=== PATIENT | female | born 1965 | race Caucasian/White ===

== ENCOUNTER 2018-10-20 12:15 | Outpatient (RCR) | payer OTHER, SELFPAY ==
--- NOTE | 2018-08-04 14:11 | PT.OIE ---
Current Diagnoses Anal spasm (08/04/18) Other specified disorders of bladder (08/04/18) Urge incontinence (08/04/18) Other symptoms and signs involving the genitourinary system (08/04/18) Past Surgical History Status post hysterectomy Provider Visit Care Team Role Provider Type WING Quinonez Primary Care Provider Non-Staff Specialty: Medical Address: [address] [place] [address], [place], [address] Email: Jewell Del Toro MD Attending Provider Non-Staff Specialty: Urology Address: [address] [place] [address], [id number] Email: Physical Therapy Initial Evaluation PT-OP-A Visit Information Start: 08/04/18 07:28 Freq: Status: Active Protocol: Document 08/04/18 13:45 AMB (Rec: 08/06/18 07:40 AMB [email or web address]) Out-Patient Physical Therapy Visit Information Visit Information Visit Type Initial Evaluation Visit Start Time 13:45 Visit Stop Time 14:30 Total Visit Minutes 45 Visit Number 1 PT-OP-B Current Condition Start: 08/04/18 07:28 Freq: Status: Active Protocol: Document 08/04/18 13:45 AMB (Rec: 08/04/18 14:13 AMB [id number]) Current Condition History of Current Condition Onset Date April 2018 Current Complaints suprapubic pain, urinary incontinence History of Current Condition Kerrie reports multiple years of chronic pain. She was diagnosed with interstitial cystitis. She has also had the diagnosis of IBS but is unsure of it, she is seeing a GI MD soon. In April of last year, she had a bad virus that went into pneumonia and was coughing a lot. This exacerbated all of her symptoms to the point she was unable to work. 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 With the coughing, she has had more stress incontinence (little leaks throughout the day) and daily urgency. She has had 4 instances of urge incontinence (large leaks) wetting pants. Pain worsens in the afternoon (standing and sitting make it worse). Coughing and stress increase pain. Distant history of 3 pregnancies, 2 vaginal births with tearing. Prior Treatments and Tests Prior vaginal hysterectomy in and laparoscopic oophorectomy in 2017. 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 Functional Limitations- Other Not sexually active currently, but wouldn't want to at this point due to pain. Personal Factors Other Personal Factors That May Effect DMII, depression, lives [place] [facility] [place] (long commute into PT). PT-OP-C Subjective Start: 08/04/18 07:28 Freq: Status: Active Protocol: Document 08/04/18 13:45 AMB (Rec: 08/06/18 12:59 AMB [email or web address]) OP-PT Pain Assessment Location Lower Abdomen Intensity 8 Scale Used Numeric (1 - 10) Description Sharp Spasm Frequency Constant Pain Aggravating Factors Activity Standing Sitting Coughing PT-OP-I Pelvic Floor Start: 08/04/18 07:28 Freq: Status: Active Protocol: Document 08/04/18 13:45 AMB (Rec: 08/06/18 12:10 AMB [email or web address]) Pelvic Floor Assessment Urine Pelvic Floor Surgery Yes Urinary Symptoms Dysuria Urge Sensation Pain Leakage Size Large Leakage Cause Cough Sneeze Urge Leaks Per Day 3 Voiding Frequency 6-10x/day Nocturia 3 Pads Used In 24 Hours 3 Urine Pad Type Maxi Pad Bowel Bowel Symptoms Fecal Leakage Other Bowel Symptoms Pt reports fecal incontinence when she had a stomach virus in April and a lot of diarrhea, but usually this is not as much of a problem. [place] Stool Chart Type 1-7 5 [place] Stool Chart Comments varies Pelvic Clock Pelvic Clock 12-3 Hypertonic Pelvic Clock 3-6 Guarding Tenderness Tightness Pelvic Clock 6-9 Guarding Tenderness Tightness Pelvic Clock 9-12 Hypertonic Prolapse Cystocele Grade 2 Rectocele Grade 1 Contraction Ability Voluntary Contraction Weak Voluntary Relaxation Weak Manual Muscle Testing Left 1 Manual Muscle Testing Right 1 Manual Muscle Testing Anterior 1 Manual Muscle Testing Posterior 2 Muscle Endurance (Seconds) 3 Number of Quick Contractions In 10 3 Seconds PT-OP-T Assessment and Plan Start: 08/04/18 07:28 Freq: Status: Active Protocol: Document 08/04/18 13:45 AMB (Rec: 08/06/18 12:59 AMB [email or web address]) Physical Therapy Assessment Rehab Potential Rehabilitation Potential Good Evaluation Complexity Number of Personal Factors/Comorbidities 3 or More Number of Body Systems Impaired 4 or More Clinical Presentation at Evaluation Evolving Impairments Impairments Functional Activities Pain Soft Tissue Mobility Strength Tone Goals Three Impairment Strength Short Term Goal (STG) Kerrie will increase her pelvic floor strength to 3/5. STG Duration 5 weeks Alf Goal (LTG) Kerrie will be independent with a pelvic floor strengthening HEP. LTG Duration 10/13/18 Two Impairment incontinence Short Term Goal (STG) Kerrie will use urge suppression techniques to avoid large leaks caused by urge incontinence. STG Duration 5 weeks Alf Goal (LTG) Kerrie will move from sit to stand and walk around her home without stress incontinence leaks LTG Duration 10/13/18 One Impairment pelvic pain Short Term Goal (STG) Kerrie will tolerate pelvic floor palpation with pain of 5 /10 or less. 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 LTG Duration 10/13/18 Assessment Summary Assessment Kerrie attends physical therapy with an acute exacerbation of chronic abdominal and pelvic pain. She has been going to another PT to start on reducing her pelvic floor tension (while waiting to get into this clinic), and states that it was helping but then she got a cold and began coughing again and now it is flared again. She states that she is coming here now because that PT is just starting out doing women' s health PT and does not have biofeedback or a STM unit at her clinic, so she is now discharged there and will be continuing here. Overall she did have tension in her pelvic floor, and palpation of levator ani and obterator internus bilaterally did radiate pain into her abdomen, but states that she would not have been able to tolerate that kind of palpation 6 weeks ago before starting PT. She will benefit from continued PT , with a focus on reducing pain and tension first, and then improving strength in her pelvic floor to reduce her incontinence. Physical Therapy Plan Frequency and Duration Frequency of Treatment 1x/Week Duration of Treatment 10 weeks Plan of Care Start Date 08/04/18 Plan of Care End Date 10/13/18 Therapeutic Interventions Therapeutic Interventions Home Exercise Program Manual Therapy Neuromuscular Re-education Self-Care/Home Management Soft Tissue Mobilization Therapeutic Activities Therapeutic Exercises Modalities Biofeedback Cold Pack/Ice Massage Electric Stimulation Hot Packs Next Visit Focus/Plan Next Note Type Treatment Note Next Visit Plan Manual therapy and biofeedback to reduce pelvic floor tone and encourage good resting tone. Education in urge suppression techniques.
--- NOTE | 2018-08-11 12:47 | PT.OTN ---
Current Diagnoses Anal spasm (08/11/18) Physical Therapy Treatment Note PT-OP-A Visit Information Start: 08/04/18 07:28 Freq: Status: Active Protocol: Document 08/04/18 13:45 AMB (Rec: 08/06/18 07:40 AMB [email or web address]) Out-Patient Physical Therapy Visit Information Visit Information Visit Type Initial Evaluation Visit Start Time 13:45 Visit Stop Time 14:30 Total Visit Minutes 45 Visit Number 1 PT-OP-B Current Condition Start: 08/04/18 07:28 Freq: Status: Active Protocol: Document 08/04/18 13:45 AMB (Rec: 08/04/18 14:13 AMB [id number]) Current Condition History of Current Condition Onset Date April 2018 Current Complaints suprapubic pain, urinary incontinence History of Current Condition Kerrie reports multiple years of chronic pain. She was diagnosed with interstitial cystitis. She has also had the diagnosis of IBS but is unsure of it, she is seeing a GI MD soon. In April of last year, she had a bad virus that went into pneumonia and was coughing a lot. This exacerbated all of her symptoms to the point she was unable to work. 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 With the coughing, she has had more stress incontinence (little leaks throughout the day) and daily urgency. She has had 4 instances of urge incontinence (large leaks) wetting pants. Pain worsens in the afternoon (standing and sitting make it worse). Coughing and stress increase pain. Distant history of 3 pregancies, 2 vaginal births with tearing. Prior Treatments and Tests Prior vaginal hysterectomy in and laparoscopic oophorectomy in 2016. 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 Functional Limitations- Other Not sexually active currently, but wouldn't want to at this point due to pain. Personal Factors Other Personal Factors That May Effect DMII, depression, lives in [facility] [place] (long commute into PT). PT-OP-C Subjective Start: 08/04/18 07:28 Freq: Status: Active Protocol: Document 08/11/18 12:34 AMH (Rec: 08/11/18 12:47 AMH [email or web address]) OP-PT Subjective Patient Comments Patient Comments Kerrie reports she has a vaginal rash and she is not sure if this is from latex gloves? She also reports she stopped taking her estrogen approximately two weeks ago around the same time the rash appeared. PT-OP-I Pelvic Floor Start: 08/04/18 07:28 Freq: Status: Active Protocol: Document 08/04/18 13:45 AMB (Rec: 08/06/18 12:10 AMB [email or web address]) Pelvic Floor Assessment Urine Pelvic Floor Surgery Yes Urinary Symptoms Dysuria Urge Sensation Pain Leakage Size Large Leakage Cause Cough Sneeze Urge Leaks Per Day 3 Voiding Frequency 6-10x/day Nocturia 3 Pads Used In 24 Hours 3 Urine Pad Type Maxi Pad Bowel Bowel Symptoms Fecal Leakage Other Bowel Symptoms Pt reports fecal incontinence when she had a stomach virus in April and a lot of diarrhea, but usually this is not as much of a problem. [place] Stool Chart Type 1-7 5 [place] Stool Chart Comments varies Pelvic Clock Pelvic Clock 12-3 Hypertonic Pelvic Clock 3-6 Guarding Tenderness Tightness Pelvic Clock 6-9 Guarding Tenderness Tightness Pelvic Clock 9-12 Hypertonic Prolapse Cystocele Grade 2 Rectocele Grade 1 Contraction Ability Voluntary Contraction Weak Voluntary Relaxation Weak Manual Muscle Testing Left 1 Manual Muscle Testing Right 1 Manual Muscle Testing Anterior 1 Manual Muscle Testing Posterior 2 Muscle Endurance (Seconds) 3 Number of Quick Contractions In 10 3 Seconds PT-OP-Q Treatments Start: 08/04/18 07:28 Freq: Status: Active Protocol: Document 08/11/18 12:34 AMH (Rec: 08/11/18 12:47 AMH [email or web address]) Manual Therapy Treatment Soft Tissue Mobilization 3 Body Location pelvic diaphragm MFR Comments good tolerance 2 Body Location visceral massage of the bladder Comments good tolerance 1 Body Location ILU massage over the colon Comments manual ILU massage performed 10 reps per segment, pt educated in ILU self massage for home and handout on massage given Neuro Re-Education Treatment Other Activities 1 Details EMG biofeedback used today for relaxed awareness of the pelvic floor Comments pt educated on relaxed awareness of the pelvic floor and she was able to bring down her resting tone from 5 uv to 2 uv on EMG biofeedback following 10 min of breathing and imagery Self-Care/Home Management Treatment Education Other Education avoiding crossing legs, gluteal relaxation in standing and with toileting gave pt info on yoga for pelvic pain DVD PT-OP-T Assessment and Plan Start: 08/04/18 07:28 Freq: Status: Active Protocol: Document 08/11/18 12:34 AMH (Rec: 08/11/18 12:47 AMH [email or web address]) Physical Therapy Assessment Assessment Summary Assessment Kerrie tolerated today's treatment very well, she is restricted across the abdominal wall and myofascially in the suprapubic fascia. We talked a lot about relaxing her abdominals and gluteals at rest and she did well with EMG biofeedback relaxed awareness of the pelvic floor. Due to her rash and irritation MFR of the pelvic floor was kept to the pelvic diaphragm. She has tightness is this region and is tender along the obturator internus B Physical Therapy Plan Frequency and Duration Frequency of Treatment 1x/Week Duration of Treatment 10 weeks Plan of Care Start Date 08/04/18 Plan of Care End Date 10/13/18 Therapeutic Interventions Therapeutic Interventions Home Exercise Program Manual Therapy Neuromuscular Re-education Self-Care/Home Management Soft Tissue Mobilization Therapeutic Activities Therapeutic Exercises Modalities Biofeedback Cold Pack/Ice Massage Electric Stimulation Hot Packs Next Visit Focus/Plan Next Note Type Treatment Note Next Visit Plan continue with MFR as Kerrie has responded well to this, stretches for pelvic pain, diaphragmatic breathing, relaxed awareness of pelvic floor, moving towards contract relax of the levator ani asd Kerrie can tolerate. Internal pelvic floor release if rash has improved.
--- NOTE | 2018-08-18 13:47 | PT.OTN ---
Current Diagnoses Anal spasm (08/18/18) Physical Therapy Treatment Note PT-OP-A Visit Information Start: 08/04/18 07:28 Freq: Status: Active Protocol: Document 08/18/18 12:11 AMH (Rec: 08/18/18 12:25 AMH [id number]) Out-Patient Physical Therapy Visit Information Visit Information Visit Type Treatment Note Visit Start Time 12:15 Visit Stop Time 13:00 Total Visit Minutes 45 Visit Number 3 PT-OP-B Current Condition Start: 08/04/18 07:28 Freq: Status: Active Protocol: Document 08/04/18 13:45 AMB (Rec: 08/04/18 14:13 AMB [id number]) Current Condition History of Current Condition Onset Date April 2018 Current Complaints suprapubic pain, urinary incontinence History of Current Condition Kerrie reports multiple years of chronic pain. She was diagnosed with interstitial cystitis. She has also had the diagnosis of IBS but is unsure of it, she is seeing a GI MD soon. In April of last year, she had a bad virus that went into pneumonia and was coughing a lot. This exacerbated all of her symptoms to the point she was unable to work. 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 With the coughing, she has had more stress incontinence (little leaks throughout the day) and daily urgency. She has had 4 instances of urge incontinence (large leaks) wetting pants. Pain worsens in the afternoon (standing and sitting make it worse). Coughing and stress increase pain. Distant history of 3 pregancies, 2 vaginal births with tearing. Prior Treatments and Tests Prior vaginal hysterectomy in and laparoscopic oophorectomy in 2016. 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 Functional Limitations- Other Not sexually active currently, but wouldn't want to at this point due to pain. Personal Factors Other Personal Factors That May Effect DMII, depression, lives in [facility] [place] (long commute into PT). PT-OP-C Subjective Start: 03/06/19 07:28 Freq: Status: Active Protocol: Document 08/18/18 12:11 AMH (Rec: 08/18/18 12:25 AMH [id number]) OP-PT Subjective Patient Comments Patient Comments Reports she was pretty sore after last visit, experienced more leakage and pain, double the amount of leakage this past week. She did start taking her estrogen that night after PT. The rash is still there some. Kerrie reports she has been trying to sit without her legs crossed and is trying to relax her abdominal muscles while sitting as she can tell she keeps these tight during the day Patient Reported Progress Same PT-OP-I Pelvic Floor Start: 08/04/18 07:28 Freq: Status: Active Protocol: Document 08/04/18 13:45 AMB (Rec: 08/06/18 12:10 AMB [email or web address]) Pelvic Floor Assessment Urine Pelvic Floor Surgery Yes Urinary Symptoms Dysuria Urge Sensation Pain Leakage Size Large Leakage Cause Cough Sneeze Urge Leaks Per Day 3 Voiding Frequency 6-10x/day Nocturia 3 Pads Used In 24 Hours 3 Urine Pad Type Maxi Pad Bowel Bowel Symptoms Fecal Leakage Other Bowel Symptoms Pt reports fecal incontinence when she had a stomach virus in April and a lot of diarrhea, but usually this is not as much of a problem. [place] Stool Chart Type 1-7 5 [place] Stool Chart Comments varies Pelvic Clock Pelvic Clock 12-3 Hypertonic Pelvic Clock 3-6 Guarding Tenderness Tightness Pelvic Clock 6-9 Guarding Tenderness Tightness Pelvic Clock 9-12 Hypertonic Prolapse Cystocele Grade 2 Rectocele Grade 1 Contraction Ability Voluntary Contraction Weak Voluntary Relaxation Weak Manual Muscle Testing Left 1 Manual Muscle Testing Right 1 Manual Muscle Testing Anterior 1 Manual Muscle Testing Posterior 2 Muscle Endurance (Seconds) 3 Number of Quick Contractions In 10 3 Seconds PT-OP-Q Treatments Start: 08/04/18 07:28 Freq: Status: Active Protocol: Document 08/18/18 13:28 AMH (Rec: 08/18/18 13:47 AMH [email or web address]) Therapeutic Exercises Supine Exercises 3 Supine Exercise Name diaphragmatic breathing Comments discussed pelvic floor relaxation on the inhale 2 Supine Exercise Name happy baby stretch Reps/Minutes hold 1 min or longer Comments focus on relaxation of the pelvic floor with deep breathing 1 Supine Exercise Name figure 4 stretch Reps/Minutes hold 1 min each side Prone Exercises 1 Prone Exercise Name cobra stretch Comments focus on abdominal wall and bladder relaxation Other Exercises 2 Other Exercise Name half kneeling hip flexor stretch/ also solomon test position 1 Other Exercise Name quadraped cat/cow Comments breathing education to inhale with cow, exhale with cat and flexion PT-OP-T Assessment and Plan Start: 08/04/18 07:28 Freq: Status: Active Protocol: Document 08/18/18 13:28 AMH (Rec: 08/18/18 13:47 AMH [email or web address]) Physical Therapy Assessment Assessment Summary Assessment Kerrie reports she was sore from the last visit when we started gentle MFR over the abdomen, bladder, external pelvic floor diaphragm. We had not done any pelvic floor contractions and only did biofeedback for pelvic floor relaxation last visit. Today I focused on gentle stretches , diaphragmatic breathing, gentle bladder mobilizations and MFR over the abdomen. Kerrie wanted to start internal pelvic floor release so I did some manual release on the right side of the levator ani. She is tight in the coccygeus and right lateral wall. She tolerated this well and the stretches well today. She is very tight right greater than left illiopsoas musculature and may need review on this stretch next visit Physical Therapy Plan Frequency and Duration Frequency of Treatment 1x/Week Duration of Treatment 10 weeks Plan of Care Start Date 08/04/18 Plan of Care End Date 10/13/18 Therapeutic Interventions Therapeutic Interventions Home Exercise Program Manual Therapy Neuromuscular Re-education Self-Care/Home Management Soft Tissue Mobilization Therapeutic Activities Therapeutic Exercises Modalities Biofeedback Cold Pack/Ice Massage Electric Stimulation Hot Packs Next Visit Focus/Plan Next Note Type Treatment Note Next Visit Plan continue working on stretches for pelvic pain, gentle MFR for the levator ani, pelvic diaphragm, abdomen, and suprapubic region, biofeedback for relaxation. Reassess how Kerrie responded to internal levator ani release
--- NOTE | 2018-08-18 13:53 | PT.OTN ---
Current Diagnoses Anal spasm (08/18/18) Physical Therapy Treatment Note PT-OP-A Visit Information Start: 08/04/18 07:28 Freq: Status: Active Protocol: Document 08/18/18 12:40 AMH (Rec: 08/18/18 12:25 AMH [id number]) Out-Patient Physical Therapy Visit Information Visit Information Visit Type Treatment Note Visit Start Time 12:15 Visit Stop Time 13:00 Total Visit Minutes 45 Visit Number 3 Number of CLERK Visits 0 PT-OP-B Current Condition Start: 08/04/18 07:28 Freq: Status: Active Protocol: Document 08/04/18 13:45 AMB (Rec: 08/04/18 14:13 AMB [id number]) Current Condition History of Current Condition Onset Date April 2018 Current Complaints suprapubic pain, urinary incontinence History of Current Condition Kerrie reports multiple years of chronic pain. She was diagnosed with interstitial cystitis. She has also had the diagnosis of IBS but is unsure of it, she is seeing a GI MD soon. In April of last year, she had a bad virus that went into pneumonia and was coughing a lot. This exacerbated all of her symptoms to the point she was unable to work. 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 With the coughing, she has had more stress incontinence (little leaks throughout the day) and daily urgency. She has had 4 instances of urge incontinence (large leaks) wetting pants. Pain worsens in the afternoon (standing and sitting make it worse). Coughing and stress increase pain. Distant history of 3 pregancies, 2 vaginal births with tearing. Prior Treatments and Tests Prior vaginal hysterectomy in and laparoscopic oophorectomy in 2016. 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 Functional Limitations- Other Not sexually active currently, but wouldn't want to at this point due to pain. Personal Factors Other Personal Factors That May Effect DMII, depression, lives in Therapy/[facility] [place] (long commute into PT). PT-OP-C Subjective Start: 08/04/18 07:28 Freq: Status: Active Protocol: Document 08/18/18 12:11 AMH (Rec: 08/18/18 12:25 AMH [id number]) OP-PT Subjective Patient Comments Patient Comments Reports she was pretty sore after last visit, experienced more leakage and pain, double the amount of leakage this past week. She did start taking her estrogen that night after PT. The rash is still there some. Kerrie reports she has been trying to sit without her legs crossed and is trying to relax her abdominal muscles while sitting as she can tell she keeps these tight during the day Patient Reported Progress Same PT-OP-I Pelvic Floor Start: 08/04/18 07:28 Freq: Status: Active Protocol: Document 08/04/18 13:45 AMB (Rec: 08/06/18 12:10 AMB [email or web address]) Pelvic Floor Assessment Urine Pelvic Floor Surgery Yes Urinary Symptoms Dysuria Urge Sensation Pain Leakage Size Large Leakage Cause Cough Sneeze Urge Leaks Per Day 3 Voiding Frequency 6-10x/day Nocturia 3 Pads Used In 24 Hours 3 Urine Pad Type Maxi Pad Bowel Bowel Symptoms Fecal Leakage Other Bowel Symptoms Pt reports fecal incontinence when she had a stomach virus in April and a lot of diarrhea, but usually this is not as much of a problem. [place] Stool Chart Type 1-7 5 [place]flow Stool Chart Comments varies Pelvic Clock Pelvic Clock 12-3 Hypertonic Pelvic Clock 3-6 Guarding Tenderness Tightness Pelvic Clock 6-9 Guarding Tenderness Tightness Pelvic Clock 9-12 Hypertonic Prolapse Cystocele Grade 2 Rectocele Grade 1 Contraction Ability Voluntary Contraction Weak Voluntary Relaxation Weak Manual Muscle Testing Left 1 Manual Muscle Testing Right 1 Manual Muscle Testing Anterior 1 Manual Muscle Testing Posterior 2 Muscle Endurance (Seconds) 3 Number of Quick Contractions In 10 3 Seconds PT-OP-Q Treatments Start: 08/04/18 07:28 Freq: Status: Active Protocol: Document 08/18/18 13:28 AMH (Rec: 08/18/18 13:47 AMH [email or web address]) Therapeutic Exercises Supine Exercises 3 Supine Exercise Name diaphragmatic breathing Comments discussed pelvic floor relaxation on the inhale 2 Supine Exercise Name happy baby stretch Reps/Minutes hold 1 min or longer Comments focus on relaxation of the pelvic floor with deep breathing 1 Supine Exercise Name figure 4 stretch Reps/Minutes hold 1 min each side Prone Exercises 1 Prone Exercise Name cobra stretch Comments focus on abdominal wall and bladder relaxation Other Exercises 2 Other Exercise Name half kneeling hip flexor stretch/ also solomon test position 1 Other Exercise Name quadraped cat/cow Comments breathing education to inhale with cow, exhale with cat and flexion PT-OP-T Assessment and Plan Start: 08/04/18 07:28 Freq: Status: Active Protocol: Document 08/18/18 13:28 AMH (Rec: 08/18/18 13:47 AMH [email or web address]) Physical Therapy Assessment Assessment Summary Assessment Kerrie reports she was sore from the last visit when we started gentle MFR over the abdomen, bladder, external pelvic floor diaphragm. We had not done any pelvic floor contractions and only did biofeedback for pelvic floor relaxation last visit. Today I focused on gentle stretches , diaphragmatic breathing, gentle bladder mobilizations and MFR over the abdomen. Kerrie wanted to start internal pelvic floor release so I did some manual release on the right side of the levator ani. She is tight in the coccygeus and right lateral wall. She tolerated this well and the stretches well today. She is very tight right greater than left illiopsoas musculature and may need review on this stretch next visit Physical Therapy Plan Frequency and Duration Frequency of Treatment 1x/Week Duration of Treatment 10 weeks Plan of Care Start Date 08/04/18 Plan of Care End Date 10/13/18 Therapeutic Interventions Therapeutic Interventions Home Exercise Program Manual Therapy Neuromuscular Re-education Self-Care/Home Management Soft Tissue Mobilization Therapeutic Activities Therapeutic Exercises Modalities Biofeedback Cold Pack/Ice Massage Electric Stimulation Hot Packs Next Visit Focus/Plan Next Note Type Treatment Note Next Visit Plan continue working on stretches for pelvic pain, gentle MFR for the levator ani, pelvic diaphragm, abdomen, and suprapubic region, biofeedback for relaxation. Reassess how Kerrie responded to internal levator ani release
--- NOTE | 2018-09-08 15:37 | PT.OTN ---
Current Diagnoses Anal spasm (09/08/18) Physical Therapy Treatment Note PT-OP-A Visit Information Start: 08/04/18 07:28 Freq: Status: Active Protocol: Document 09/08/18 09:45 AMB (Rec: 09/08/18 14:31 AMB [email or web address]) Out-Patient Physical Therapy Visit Information Visit Information Visit Type Treatment Note Visit Start Time 09:45 Visit Stop Time 10:30 Total Visit Minutes 45 Visit Number 4 Number of TAIL END RIDER Visits 0 PT-OP-B Current Condition Start: 08/04/18 07:28 Freq: Status: Active Protocol: Document 08/04/18 13:45 AMB (Rec: 08/04/18 14:13 AMB [id number]) Current Condition History of Current Condition Onset Date April 2018 Current Complaints suprapubic pain, urinary incontinence History of Current Condition Kerrie reports multiple years of chronic pain. She was diagnosed with interstitial cystitis. She has also had the diagnosis of IBS but is unsure of it, she is seeing a GI MD soon. In April of last year, she had a bad virus that went into pneumonia and was coughing a lot. This exacerbated all of her symptoms to the point she was unable to work. 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 With the coughing, she has had more stress incontinence (little leaks throughout the day) and daily urgency. She has had 4 instances of urge incontinence (large leaks) wetting pants. Pain worsens in the afternoon (standing and sitting make it worse). Coughing and stress increase pain. Distant history of 3 pregancies, 2 vaginal births with tearing. Prior Treatments and Tests Prior vaginal hysterectomy in and laparoscopic oophorectomy in 2016. 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 Functional Limitations- Other Not sexually active currently, but wouldn't want to at this point due to pain. Personal Factors Other Personal Factors That May Effect DMII, depression, lives in Therapy/[facility] [place] (long commute into PT). PT-OP-C Subjective Start: 08/04/18 07:28 Freq: Status: Active Protocol: Document 09/08/18 09:45 AMB (Rec: 09/08/18 14:31 AMB [email or web address]) OP-PT Subjective Patient Comments Patient Comments Pt reports she was not as sore after last visit. Last week she had to cancel her last appointment because of what turned out to be a kidney stone, she had hematuria. Patient Reported Progress Improving PT-OP-I Pelvic Floor Start: 08/04/18 07:28 Freq: Status: Active Protocol: Document 08/04/18 13:45 AMB (Rec: 08/06/18 12:10 AMB [email or web address]) Pelvic Floor Assessment Urine Pelvic Floor Surgery Yes Urinary Symptoms Dysuria Urge Sensation Pain Leakage Size Large Leakage Cause Cough Sneeze Urge Leaks Per Day 3 Voiding Frequency 6-10x/day Nocturia 3 Pads Used In 24 Hours 3 Urine Pad Type Maxi Pad Bowel Bowel Symptoms Fecal Leakage Other Bowel Symptoms Pt reports fecal incontinence when she had a stomach virus in April and a lot of diarrhea, but usually this is not as much of a problem. [place] Stool Chart Type 1-7 5 [place] Stool Chart Comments varies Pelvic Clock Pelvic Clock 12-3 Hypertonic Pelvic Clock 3-6 Guarding Tenderness Tightness Pelvic Clock 6-9 Guarding Tenderness Tightness Pelvic Clock 9-12 Hypertonic Prolapse Cystocele Grade 2 Rectocele Grade 1 Contraction Ability Voluntary Contraction Weak Voluntary Relaxation Weak Manual Muscle Testing Left 1 Manual Muscle Testing Right 1 Manual Muscle Testing Anterior 1 Manual Muscle Testing Posterior 2 Muscle Endurance (Seconds) 3 Number of Quick Contractions In 10 3 Seconds PT-OP-Q Treatments Start: 08/04/18 07:28 Freq: Status: Active Protocol: Document 09/08/18 09:45 AMB (Rec: 09/08/18 15:36 AMB [email or web address]) Therapeutic Exercises Supine Exercises 3 Supine Exercise Name diaphragmatic breathing Comments discussed pelvic floor relaxation on the inhale 2 Supine Exercise Name happy baby stretch Reps/Minutes hold 1 min or longer Comments focus on relaxation of the pelvic floor with deep breathing 1 Supine Exercise Name figure 4 stretch Reps/Minutes hold 1 min each side Prone Exercises 1 Prone Exercise Name cobra stretch Comments focus on abdominal wall and bladder relaxation Manual Therapy Treatment Soft Tissue Mobilization 4 Body Location piriformis Mobilization Type Myofascial Release Sustained Pressure Comments bilateral 2 Body Location visceral massage of the bladder Comments good tolerance PT-OP-T Assessment and Plan Start: 08/04/18 07:28 Freq: Status: Active Protocol: Document 09/08/18 09:45 AMB (Rec: 09/08/18 15:36 AMB [email or web address]) Physical Therapy Assessment Assessment Summary Assessment Kerrie reported no real increase in pain after last visit. She has had a difficult week with her kidney stones, but was happy that she had exercises at home that helped her deal with the pain . She continues to have bladder pain, but reports she did not go into full body pain which has happened in the past and she attributes this to the exercises. Physical Therapy Plan Frequency and Duration Frequency of Treatment 1x/Week Duration of Treatment 10 weeks Plan of Care Start Date 08/04/18 Plan of Care End Date 10/13/18 Therapeutic Interventions Therapeutic Interventions Home Exercise Program Manual Therapy Neuromuscular Re-education Self-Care/Home Management Soft Tissue Mobilization Therapeutic Activities Therapeutic Exercises Modalities Biofeedback Cold Pack/Ice Massage Electric Stimulation Hot Packs Next Visit Focus/Plan Next Note Type Treatment Note Next Visit Plan continue working on stretches for pelvic pain, gentle MFR for the levator ani, pelvic diaphragm, abdomen, and suprapubic region, biofeedback for relaxation.
--- NOTE | 2018-09-23 11:40 | PT.OTN ---
Current Diagnoses Anal spasm (09/22/18) Physical Therapy Treatment Note PT-OP-A Visit Information Start: 08/04/18 07:28 Freq: Status: Active Protocol: Document 09/22/18 12:15 AMH (Rec: 09/23/18 11:40 AMH [email or web address]) Out-Patient Physical Therapy Visit Information Visit Information Visit Type Treatment Note Visit Start Time 12:15 Visit Stop Time 13:00 Total Visit Minutes 45 Visit Number 5 PT-OP-B Current Condition Start: 08/04/18 07:28 Freq: Status: Active Protocol: Document 08/04/18 13:45 AMB (Rec: 08/04/18 14:13 AMB [id number]) Current Condition History of Current Condition Onset Date April 2018 Current Complaints suprapubic pain, urinary incontinence History of Current Condition Kerrie reports multiple years of chronic pain. She was diagnosed with interstitial cystitis. She has also had the diagnosis of IBS but is unsure of it, she is seeing a GI MD soon. In April of last year, she had a bad virus that went into pneumonia and was coughing a lot. This exacerbated all of her symptoms to the point she was unable to work. 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 With the coughing, she has had more stress incontinence (little leaks throughout the day) and daily urgency. She has had 4 instances of urge incontinence (large leaks) wetting pants. Pain worsens in the afternoon (standing and sitting make it worse). Coughing and stress increase pain. Distant history of 3 pregancies, 2 vaginal births with tearing. Prior Treatments and Tests Prior vaginal hysterectomy in and laparoscopic oophorectomy in 2016. 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 Functional Limitations- Other Not sexually active currently, but wouldn't want to at this point due to pain. Personal Factors Other Personal Factors That May Effect DMII, depression, lives in Therapy/[facility] [place] (long commute into PT). PT-OP-C Subjective Start: 08/04/18 07:28 Freq: Status: Active Protocol: Document 09/22/18 12:15 AMH (Rec: 09/23/18 11:40 AMH [email or web address]) OP-PT Subjective Patient Comments Patient Comments Kerrie reports she feels like she is doing better. Her kidney stone has cleared in the past three days and pain is decresaed. She will be having a colonoscopy soon and she is a little worried this will irritate her symptoms Patient Reported Progress Improving PT-OP-I Pelvic Floor Start: 08/04/18 07:28 Freq: Status: Active Protocol: Document 08/04/18 13:45 AMB (Rec: 08/06/18 12:10 AMB [email or web address]) Pelvic Floor Assessment Urine Pelvic Floor Surgery Yes Urinary Symptoms Dysuria Urge Sensation Pain Leakage Size Large Leakage Cause Cough Sneeze Urge Leaks Per Day 3 Voiding Frequency 6-10x/day Nocturia 3 Pads Used In 24 Hours 3 Urine Pad Type Maxi Pad Bowel Bowel Symptoms Fecal Leakage Other Bowel Symptoms Pt reports fecal incontinence when she had a stomach virus in April and a lot of diarrhea, but usually this is not as much of a problem. [place] Stool Chart Type 1-7 5 [place] Stool Chart Comments varies Pelvic Clock Pelvic Clock 12-3 Hypertonic Pelvic Clock 3-6 Guarding Tenderness Tightness Pelvic Clock 6-9 Guarding Tenderness Tightness Pelvic Clock 9-12 Hypertonic Prolapse Cystocele Grade 2 Rectocele Grade 1 Contraction Ability Voluntary Contraction Weak Voluntary Relaxation Weak Manual Muscle Testing Left 1 Manual Muscle Testing Right 1 Manual Muscle Testing Anterior 1 Manual Muscle Testing Posterior 2 Muscle Endurance (Seconds) 3 Number of Quick Contractions In 10 3 Seconds PT-OP-Q Treatments Start: 08/04/18 07:28 Freq: Status: Active Protocol: Document 09/22/18 12:15 AMH (Rec: 09/23/18 11:40 AMH [email or web address]) Therapeutic Exercises Supine Exercises 4 Supine Exercise Name pelvic floor long holds 10 second hold with 10 second relax Reps/Minutes x 10 reps 2 Supine Exercise Name happy baby stretch Reps/Minutes hold 1 min or longer Comments focus on relaxation of the pelvic floor with deep breathing 1 Supine Exercise Name figure 4 stretch Reps/Minutes hold 1 min each side Manual Therapy Treatment Soft Tissue Mobilization 5 Body Location levator ani release of illiococcygeus B Comments good relaxation bilaterally 3 Body Location pelvic diaphragm MFR Comments good tolerance 2 Body Location visceral massage of the bladder Comments good tolerance 1 Body Location ILU massage over the colon Comments manual ILU massage performed 10 reps per segment, pt educated in ILU self massage for home and handout on massage given PT-OP-T Assessment and Plan Start: 08/04/18 07:28 Freq: Status: Active Protocol: Document 09/22/18 12:15 AMH (Rec: 09/23/18 11:40 AMH [email or web address]) Physical Therapy Assessment Assessment Summary Assessment Kerrie did really well today with pelvic floor release. Following the manual work there was significant reduction in guarding in her pelvic floor. She has been using the dialator as well at home which is helping. She had a much lower baseline on EMG biofeedback to day to 2 uv . She was able to begin pelvic floor strengthening exercises and holding to 10 seconds for 10 reps without any increase in pain and with good relaxation inbetween contractions. I felt good about starting her with pelvic floor exercises for home with the instruction to stop them if there is discomfort. Physical Therapy Plan Frequency and Duration Frequency of Treatment 1x/Week Duration of Treatment 10 weeks Plan of Care Start Date 08/04/18 Plan of Care End Date 10/13/18 Therapeutic Interventions Therapeutic Interventions Home Exercise Program Manual Therapy Neuromuscular Re-education Self-Care/Home Management Soft Tissue Mobilization Therapeutic Activities Therapeutic Exercises Modalities Biofeedback Cold Pack/Ice Massage Electric Stimulation Hot Packs Next Visit Focus/Plan Next Note Type Treatment Note Next Visit Plan reassess resting tone of the pelvic floor and increase strength exercise if pt has tolerated her home program
--- NOTE | 2018-10-21 18:59 | PT.OTN ---
Current Diagnoses Anal spasm (10/20/18) Physical Therapy Treatment Note PT-OP-A Visit Information Start: 08/04/18 07:28 Freq: Status: Active Protocol: Document 10/20/18 18:54 [facility] (Rec: 10/21/18 18:59 [facility] [email or web address]) Out-Patient Physical Therapy Visit Information Visit Information Visit Type Progress Note Visit Start Time 12:15 Visit Stop Time 13:00 Total Visit Minutes 45 Visit Number 6 PT-OP-B Current Condition Start: 08/04/18 07:28 Freq: Status: Active Protocol: Document 08/04/18 13:45 AMB (Rec: 08/04/18 14:13 AMB [id number]) Current Condition History of Current Condition Onset Date April 2018 Current Complaints suprapubic pain, urinary incontinence History of Current Condition Kerrie reports multiple years of chronic pain. She was diagnosed with interstitial cystitis. She has also had the diagnosis of IBS but is unsure of it, she is seeing a GI MD soon. In April of last year, she had a bad virus that went into pneumonia and was coughing a lot. This exacerbated all of her symptoms to the point she was unable to work. 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 With the coughing, she has had more stress incontinence (little leaks throughout the day) and daily urgency. She has had 4 instances of urge incontinence (large leaks) wetting pants. Pain worsens in the afternoon (standing and sitting make it worse). Coughing and stress increase pain. Distant history of 3 pregancies, 2 vaginal births with tearing. Prior Treatments and Tests Prior vaginal hysterectomy in and laparoscopic oophorectomy in 2016. 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 Functional Limitations- Other Not sexually active currently, but wouldn't want to at this point due to pain. Personal Factors Other Personal Factors That May Effect DMII, depression, lives in [facility] [place] (long commute into PT). PT-OP-C Subjective Start: 08/04/18 07:28 Freq: Status: Active Protocol: Document 10/20/18 18:54 [facility] (Rec: 10/21/18 18:59 [facility] [email or web address]) OP-PT Subjective Patient Comments Patient Comments Kerrie reports she was doing better overall and then has decided to change jobs due to too much stress. This has increased her pain levels recently. But overall she felt as if she was making progress up until this past week with her change in jobs PT-OP-I Pelvic Floor Start: 08/04/18 07:28 Freq: Status: Active Protocol: Document 08/04/18 13:45 AMB (Rec: 08/06/18 12:10 AMB [email or web address]) Pelvic Floor Assessment Urine Pelvic Floor Surgery Yes Urinary Symptoms Dysuria Urge Sensation Pain Leakage Size Large Leakage Cause Cough Sneeze Urge Leaks Per Day 3 Voiding Frequency 6-10x/day Nocturia 3 Pads Used In 24 Hours 3 Urine Pad Type Maxi Pad Bowel Bowel Symptoms Fecal Leakage Other Bowel Symptoms Pt reports fecal incontinence when she had a stomach virus in April and a lot of diarrhea, but usually this is not as much of a problem. [place] Stool Chart Type 1-7 5 [place] Stool Chart Comments varies Pelvic Clock Pelvic Clock 12-3 Hypertonic Pelvic Clock 3-6 Guarding Tenderness Tightness Pelvic Clock 6-9 Guarding Tenderness Tightness Pelvic Clock 9-12 Hypertonic Prolapse Cystocele Grade 2 Rectocele Grade 1 Contraction Ability Voluntary Contraction Weak Voluntary Relaxation Weak Manual Muscle Testing Left 1 Manual Muscle Testing Right 1 Manual Muscle Testing Anterior 1 Manual Muscle Testing Posterior 2 Muscle Endurance (Seconds) 3 Number of Quick Contractions In 10 3 Seconds PT-OP-Q Treatments Start: 08/04/18 07:28 Freq: Status: Active Protocol: Document 10/20/18 18:54 [facility] (Rec: 10/21/18 18:59 AM[facility] [email or web address]) Therapeutic Exercises Supine Exercises 3 Supine Exercise Name diaphragmatic breathing Comments discussed pelvic floor relaxation on the inhale 2 Supine Exercise Name happy baby stretch Reps/Minutes hold 1 min or longer Comments focus on relaxation of the pelvic floor with deep breathing 1 Supine Exercise Name figure 4 stretch Reps/Minutes hold 1 min each side Manual Therapy Treatment Soft Tissue Mobilization 5 Body Location levator ani release of illiococcygeus B Comments good relaxation bilaterally 3 Body Location pelvic diaphragm MFR Comments good tolerance 2 Body Location visceral massage of the bladder Comments good tolerance 1 Body Location ILU massage over the colon Comments manual ILU massage performed 10 reps per segment, pt educated in ILU self massage for home and handout on massage given PT-OP-T Assessment and Plan Start: 08/04/18 07:28 Freq: Status: Active Protocol: Document 10/20/18 18:54 [facility] (Rec: 10/21/18 18:59 [facility] [email or web address]) Physical Therapy Assessment Assessment Summary Assessment Kerrie has been making good progress with physical therapy and as of last visit the end of August was able to start adding pelvic floor strengthening to her routine. She has been under a great deal of stress with her job and recently decided to change jobs. She feels this stress may have flared her symptoms up this past week. Kerrie would benefit from continued PT as she was just getting tot he point where she could tolerate additional stretches Physical Therapy Plan Frequency and Duration Frequency of Treatment 1x/Week Duration of Treatment 10 weeks Plan of Care Start Date 10/20/18 Plan of Care End Date 12/22/18 Therapeutic Interventions Therapeutic Interventions Home Exercise Program Manual Therapy Neuromuscular Re-education Self-Care/Home Management Soft Tissue Mobilization Therapeutic Activities Therapeutic Exercises Modalities Biofeedback Cold Pack/Ice Massage Electric Stimulation Hot Packs Next Visit Focus/Plan Next Note Type Treatment Note Next Visit Plan reassess resting tone of the pelvic floor and increase strength exercise if pt has tolerated her home program
--- NOTE | 2018-10-21 18:59 | PT.OPPOC ---
Current Diagnoses Anal spasm (10/20/18) Provider Visit Care Team Role Provider Type WING Quinonez Primary Care Provider Non-Staff Specialty: Medical Address: [address] , [place], [address] Email: Jewell Del Toro MD Attending Provider Non-Staff Specialty: Urology Address: [address] [place] [address], [id number] Email: Plan Of Care PT-OP-T Assessment and Plan Start: 08/04/18 07:28 Freq: Status: Active Protocol: Document 10/20/18 18:54 [facility] (Rec: 10/21/18 18:59 [facility] [email or web address]) Physical Therapy Assessment Assessment Summary Assessment Kerrie has been making good progress with physical therapy and as of last visit the end of August was able to start adding pelvic floor strengthening to her routine. She has been under a great deal of stress with her job and recently decided to change jobs. She feels this stress may have flared her symptoms up this past week. Kerrie would benefit from continued PT as she was just getting tot he point where she could tolerate additional stretches Physical Therapy Plan Frequency and Duration Frequency of Treatment 1x/Week Duration of Treatment 10 weeks Plan of Care Start Date 10/20/18 Plan of Care End Date 12/22/18 Therapeutic Interventions Therapeutic Interventions Home Exercise Program Manual Therapy Neuromuscular Re-education Self-Care/Home Management Soft Tissue Mobilization Therapeutic Activities Therapeutic Exercises Modalities Biofeedback Cold Pack/Ice Massage Electric Stimulation Hot Packs Next Visit Focus/Plan Next Note Type Treatment Note Next Visit Plan reassess resting tone of the pelvic floor and increase strength exercise if pt has tolerated her home program Plan of Care Dates Plan of Care Start Date 10/20/18 Plan of Care End Date 12/22/18 Please Sign and Return: I have reviewed this Plan of Care and certify that the skilled therapy services above are required to meet the patient?s needs. Physician Signature Date Printed Name and Credentials Clinical Instructor Signature Printed Name and Credentials
--- NOTE | 2019-02-01 14:10 | PT.OPDS ---
Current Diagnoses Anal spasm (10/20/18) Visit Care Team Role Provider Type WING Quinonez Primary Care Provider Non-Staff Specialty: Medical Address: [address] , [place], [address] Email: Jewell Del Toro MD Attending Provider Non-Staff Specialty: Urology Address: [address] [place] [address], [id number] Email: Visit Number Visit Number 6 Discharge Summary PT-OP-B Current Condition Start: 08/04/18 07:28 Freq: Status: Active Protocol: Document 08/04/18 13:45 AMB (Rec: 08/04/18 14:13 AMB [id number]) Current Condition History of Current Condition Onset Date April 2018 Current Complaints suprapubic pain, urinary incontinence History of Current Condition Kerrie reports multiple years of chronic pain. She was diagnosed with interstitial cystitis. She has also had the diagnosis of IBS but is unsure of it, she is seeing a GI MD soon. In April of last year, she had a bad virus that went into pneumonia and was coughing a lot. This exacerbated all of her symptoms to the point she was unable to work. 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 With the coughing, she has had more stress incontinence (little leaks throughout the day) and daily urgency. She has had 4 instances of urge incontinence (large leaks) wetting pants. Pain worsens in the afternoon (standing and sitting make it worse). Coughing and stress increase pain. Distant history of 3 pregancies, 2 vaginal births with tearing. Prior Treatments and Tests Prior vaginal hysterectomy in and laparoscopic oophorectomy in 2017. 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 Functional Limitations- Other Not sexually active currently, but wouldn't want to at this point due to pain. Personal Factors Other Personal Factors That May Effect DMII, depression, lives in [facility] [place] (long commute into PT). PT-OP-C Subjective Start: 08/04/18 07:28 Freq: Status: Active Protocol: Document 10/20/18 18:54 [facility] (Rec: 10/21/18 18:59 [facility] [email or web address]) OP-PT Subjective Patient Comments Patient Comments Kerrie reports she was doing better overall and then has decided to change jobs due to too much stress. This has increased her pain levels recently. But overall she felt as if she was making progress up until this past week with her change in jobs PT-OP-I Pelvic Floor Start: 08/04/18 07:28 Freq: Status: Active Protocol: Document 08/04/18 13:45 AMB (Rec: 08/06/18 12:10 AMB [email or web address]) Pelvic Floor Assessment Urine Pelvic Floor Surgery Yes Urinary Symptoms Dysuria,Urge Sensation,Pain Leakage Size Large Leakage Cause Cough,Sneeze,Urge Leaks Per Day 3 Voiding Frequency 6-10x/day Nocturia 3 Pads Used In 24 Hours 3 Urine Pad Type Maxi Pad Bowel Bowel Symptoms Fecal Leakage Other Bowel Symptoms Pt reports fecal incontinence when she had a stomach virus in April and a lot of diarrhea, but usually this is not as much of a problem. [place] Stool Chart Type 1-[address] [place] Stool Chart Comments varies Pelvic Clock Pelvic Clock 12-3 Hypertonic Pelvic Clock 3-6 Guarding,Tenderness,Tightness Pelvic Clock 6-9 Guarding,Tenderness,Tightness Pelvic Clock 9-12 Hypertonic Prolapse Cystocele Grade 2 Rectocele Grade 1 Contraction Ability Voluntary Contraction Weak Voluntary Relaxation Weak Manual Muscle Testing Left 1 Manual Muscle Testing Right 1 Manual Muscle Testing Anterior 1 Manual Muscle Testing Posterior 2 Muscle Endurance (Seconds) 3 Number of Quick Contractions In 10 3 Seconds PT-OP-T Assessment and Plan Start: 08/04/18 07:28 Freq: Status: Active Protocol: Document 02/01/19 14:09 AM[facility] (Rec: 02/01/19 14:10 AMH [email or web address]) Physical Therapy Plan Discharge Physical Therapy Discharge Reasons No Longer Attending PT Discharge Comments Kerrie has not been seen since her last progress reports was written in September. She was in the middle of changing jobs. She will be discharged at this time but I would be happy to work with her again at any time in the future should she require further care. Thank you for this referral
== END 2019-02-02 16:28 | disposition home or self-care (01) ==
LOC: PHYS 12:15
PROVIDERS: PCP Nurse Practitioner Family; Visit Provider Urology
DX: K59.4 Anal spasm (principal)
CPT/HCPCS: 97110; 97112; 97140; 97162